=== PATIENT | female | born 1995 | race Caucasian/White ===

== ENCOUNTER 2018-11-25 09:57 | Day surgery (SDC) | payer BC ==
[~2018-11-25 09:57] MED LIST: Buffered Lidocaine 1% SYRIN* 1 ML/SYRINGE INTRADERM ONE; Famotidine IV* 10 MG/ML 2 ML (20 mg) IV ONE; Lactated Ringers 1000 ML Bag* 1,000 ML IV SCH
[2018-11-25] MEDS ORDERED: Famotidine IV* 10 MG/ML 2 ML (20 mg) ONE (10:20)
[2018-11-25] MEDS ORDERED: Buffered Lidocaine 1% SYRIN* 1 ML/SYRINGE INTRADERM ONE (10:20)
[2018-11-25] MEDS ORDERED: ceFAZolin 2 GM in NS PREMIX(*) 2 GM/100 ML BAG IVPB ONE (10:20)
[2018-11-25] MEDS ORDERED: Lidocaine 2% PF * 5 ML VIAL ONE (10:22)
[2018-11-25] MEDS ORDERED: Ondansetron INJ* 2 MG/ML VIAL ONE (10:22)
[2018-11-25] MEDS ORDERED: Propofol* 10 MG/ML 20 ML BTL ONE (10:22)
[2018-11-25] MEDS ORDERED: Dexamethasone IV* 4 MG/ML 1 ML (4 MG) ONE (10:22)
[2018-11-25] MEDS ORDERED: Ketorolac INJ* 30 MG/ML 1 ML VIAL ONE (10:22)
[2018-11-25] MEDS ORDERED: Midazolam* 1 MG/ML 5 ML VIAL (5 MG) ONE (10:23)
[2018-11-25] MEDS ORDERED: fentaNYL* 50 MCG/ML 2 ML VIAL (100 MCG VIAL) ONE ×2 (10:23→14:12)
[2018-11-25] MEDS ORDERED: Bupivacaine 0.5%* 50 ML VIAL ONE (11:23)
[2018-11-25] MEDS ORDERED: Naloxone* 0.4 MG/ML 1 ML VIAL IV PRN (12:37)
[2018-11-25] MEDS ORDERED: Ondansetron INJ* 2 MG/ML VIAL IV PRN (12:37)
[2018-11-25] MEDS ORDERED: fentaNYL* 50 MCG/ML 2 ML VIAL (100 MCG VIAL) IV PRN (12:37)
[2018-11-25] MEDS ORDERED: oxyCODONE TAB* 5 MG TAB ONE (14:46)
[2018-11-25] MEDS ORDERED: HYDROmorphone INJ1* 1 MG/ML SYRINGE ONE (15:12)
[2018-11-25 15:28] VITALS: BP 119/75
--- NOTE | 2018-11-25 21:12 | OP ---
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 OPERATIVE PROCEDURE: Reconstruction, right ankle ligaments with semitendinosus allograft. DESCRIPTION OF PROCEDURE: The patient was taken to the operating room where longitudinal incision was made over the distal fibula. We raised the subcutaneous flap to allow visualization of the capsule and the capsule was reflected directly away from the anterior and distal portion of the fibula. The anterior portion of the capsule was very thin and attenuated. We then decided to use the semitendinosus as an allograft. The distal portion of the CFL was more robust and this was repaired directly at this point using 2 through bone sutures with 0 Vicryl and a Avila-Jhon suture in essentially the distal capsule and CFL stump. We split the anterior capsule to allow visualization and access of the anterolateral talar neck where a guidepin was placed. The semitendinosus graft itself was doubled and then prepared for passage into a blind tunnel using the FiberWire kit of the [employer]. It was sized at 7 mm diameter. We passed the K-wire through the medial side of the foot, pulling the tendon down into the blind tunnel, which we reamed at 7 mm diameter. This was anchored with a 5.5 x 10 mm biotenodesis plug. We then brought the tendon back over the lateral fibula into a groove that was created by the power lala. We fixed it with a compression plate over the tendon, which was basically a 7-hole minifragment plate. This was fixed with a combination of 2.4 and 3.0 mm screws. The capsule was then brought down over the repair. We repaired the anterior split in the capsule with 2-0 Vicryl. The subcutaneous tissue was closed with 3-0 Monocryl and kisha for the skin and compression dressing plaster splint applied. [id number]/[facility] #: [id number] [facility]
== END 2018-11-25 15:28 | disposition home or self-care (01) ==
LOC: OR 09:57
PROVIDERS: ATTEND Orthopaedic Surgery
DX: M24.271 Disorder of ligament, right ankle (principal); F41.8 Other specified anxiety disorders; F90.9 Attention-deficit hyperactivity disorder, unspecified type; F95.2 Tourette's disorder
CPT/HCPCS: 76000; 81025; A9270-GY; C1713; J0690; J1100; J1170; J1885; J2250; J2405; J2704; J3010; L8699